=== PATIENT | male | born 1990 | race Caucasian/White ===

== ENCOUNTER 2016-10-18 18:07 | Inpatient (IN) | payer OTHER ==
[2016-10-18 18:47] VITALS: BMI 26.4
--- NOTE | 2016-10-18 19:05 | HP ---
COWS - Scale Resting Pulse: 2= [place] 101-120 Sweatin=Flushed/Facial Moisture Restless Observation: 3= Extraneous Movement Pupil Size: 2= Moderately Dilated Bone or Joint Aches: 2= Severe Diffuse Aches Runny Nose/ Eye Tearin= Runny Nose/Eyes GI Upset > 30mins: 2= Nausea/Diarrhea Tremor Observation: 2= Slight Tremor Visible Yawning Observation: 1= 1-2x During Session Anxiety or Irritability: 2=Irritable/Anxious Goose Flesh Skin: 0=Smooth Skin COWS Score: 20 CIWA Score - CIWA Score Nausea/Vomitin Muscle Tremors: 4-Moderate,w/Arms Extend Anxiety: 5 Agitation: 5 Paroxysmal Sweats: 4-Forehead w/Sweat Beads Orientation: 0-Oriented Tacttile Disturbances: 1-Very Mild Itch/Numbness Auditory Disturbances: 0-None Visual Disturbances: 0-None Headache: 2-Mild CIWA-Ar Total Score: 24 Admission ROS [facility] - HPI Chief Complaint: Withdrawal sx. Allergies/Adverse Reactions: Allergies Allergy/AdvReac Type Severity Reaction Status Date / Time No Known Allergies Allergy Verified 10/18/16 18:59 History of Present Illness: 26 y/o man with a long hx. of drug dependence is admitted for detox. Pt. denies previous detox.Pt. is restless,sweating constantly talking. Exam Limitations: No Limitations - Ebola screening Have you traveled outside of the country in the last 21 days: No Have you had contact with anyone from an Ebola affected area: No Have you been sick,other than usual withdrawal symptoms: No Do you have a fever: No - Review of Systems Constitutional: Diaphoresis EENT: reports: Nose Congestion Respiratory: reports: No Symptoms reported Cardiac: reports: No Symptoms Reported GI: reports: Nausea : reports: No Symptoms Reported Musculoskeletal: reports: Back Pain, Joint Pain, Muscle Pain Integumentary: reports: Sweating Neuro: reports: Headache, Numbness, Tingling, Tremors Endocrine: reports: No Symptoms Reported Hematology: reports: No Symptoms Reported Psychiatric: reports: No Sypmtoms Reported Other Systems: Reviewed and Negative Patient History - Patient Medical History Hx Anemia: No Hx Asthma: Yes (as a child) Hx Chronic Obstructive Pulmonary Disease (COPD): No Hx Cancer: No Hx Cardiac Disorders: No Hx Congestive Heart Failure: No Hx Hypertension: No Hx Hypercholesterolemia: No Hx Pacemaker: No HX Cerebrovascular Accident: No Hx Seizures: No Hx Dementia: No Hx Diabetes: No Hx Gastrointestinal Disorders: No Hx Liver Disease: No Hx Genitourinary Disorders: No Hx Sexually Transmitted Disorders: No Hx Renal Disease (ESRD): No Hx Thyroid Disease: No Hx Human Immunodeficiency Virus (HIV): No Hx Hepatitis C: No Hx Depression: Yes (prozac) Hx Suicide Attempt: No Hx Bipolar Disorder: No Hx Schizophrenia: No Other Medical History: ADHD - Patient Surgical History Past Surgical History: No - PPD History Previous Implant?: Yes Documented Results: Negative w/o proof Implanted On Prior [facility] Admission?: No PPD to be Administered?: Yes - Smoking Cessation Smoking history: Current every day smoker Aproximately how many cigarettes per day: 25 Hx Chewing Tobacco Use: No Initiated information on smoking cessation: Yes 'Breaking Loose' booklet given: 10/18/16 - Substance & Tx. History Hx Alcohol Use: No Hx Substance Use: Yes Substance Use Type: Cocaine, Heroin, Marijuana, Tranquilizers Hx Substance Use Treatment: No - Substances Abused Alprazolam (Xanax) Route: Oral Frequency: 3-6 times per week Amount used: 1-2 mg Age of first use: 21 (tried valium at 13 y/o) Date of Last Use: 10/18/16 Heroin Route: Inhalation Frequency: Daily Amount used: 2-3 gm Age of first use: 25 (from 13 to 15 y/o hydrocone) Date of Last Use: 10/17/16 Family Disease History - Family Disease History Family Disease History: Diabetes: Grandparent, Other: Father (Heroin,Bipolar disorder) Admission Physical Exam [facility] - Vital Signs Vital Signs: Vital Signs - 24 hr 10/18/16 18:44 Temperature 96.3 F L Pulse Rate 102 H Respiratory 20 Rate Blood Pressure 127/80 - Physical General Appearance: Yes: Irritable, Sweating, Anxious HEENTM: Yes: Nasal Congestion, Rhinorrhea Respiratory: Yes: Chest Non-Tender, Lungs Clear, Normal Breath Sounds Neck: Yes: Supple Breast: Yes: Breast Exam Deferred Cardiology: Yes: Regular Rhythm, Regular Rate, S1, S2 Abdominal: Yes: Normal Bowel Sounds, Non Tender, Soft Genitourinary: Yes: Within Normal Limits Back: Yes: Within Normal Limits Extremities: Yes: Tremors Neurological: Yes: Fully Oriented, Alert Integumentary: Yes: Within Normal Limits Lymphatic: Yes: Within Normal Limits - Diagnostic (1) Cannabis dependence, uncomplicated Current Visit: Yes Status: Acute (2) Cocaine dependence, uncomplicated Current Visit: Yes Status: Acute (3) Opioid dependence with withdrawal Current Visit: Yes Status: Acute (4) Sedative, hypnotic or anxiolytic dependence with withdrawal, uncomplicated Current Visit: Yes Status: Acute Cleared for Admission [facility] - Detox or Rehab [facility] Level of Care: Medically Managed Detox Regimen/Protocol: Methadone [facility] Breath Alcohol Content Breath Alcohol Content: 0 Urine Drug Screen - Results Drug Screen Negative: No Urine Drug Screen Results: THC-Marijuana, DAREK-Cocaine, OPI-Opiates, BZO- Benzodiazepines
[2016-10-18] MEDS ORDERED: MAGNESIUM HYDROX 2400MG/30ML ORAL SUSPENSION 30 ML CUP PO PRN (19:16)
[2016-10-18] MEDS ORDERED: P-EPHED 60MG/TRIPROLIDI 2.5MG TABLET PO PRN (19:16)
[2016-10-18] MEDS ORDERED: LOPERAMIDE HCL 2 MG CAPSULE PO PRN (19:16)
[2016-10-18] MEDS ORDERED: diphenhydrAMINE HCL 50 MG CAPSULE PO PRN (19:16)
[2016-10-18] MEDS ORDERED: guaiFENesin/D-METHORPHAN HB 10 ML UNIT-DOSE CUPS PO PRN (19:16)
[2016-10-18] MEDS ORDERED: MAG HYDROX/AL HYDROX/SIMETH 30 ML UNIT-DOSE CUP PO PRN (19:16)
[2016-10-18] MEDS ORDERED: MENTHOL/PHENOL 1 EACH UD MM PRN (19:16)
[2016-10-18] MEDS ORDERED: MAGNESIUM CITRATE 300 ML BOTTLE PO PRN (19:16)
[2016-10-18] MEDS ORDERED: diazePAM 5 MG TABLET PO ONE (19:16)
[2016-10-18] MEDS ORDERED: METHADONE HCL 10 MG TABLET (FOR DETOX USE ONLY) PO ONE ×2 (19:16→23:00)
[2016-10-18] MEDS ORDERED: ALBUTEROL SO4 6.7 GM HFA INHALER IH PRN (19:24)
[2016-10-18] MEDS: NICOTINE 21 MG/24 HOURS TOPICAL PATCH TD SCH (20:54)
[2016-10-18] MEDS: diazePAM 5 MG TABLET PO SCH (22:16)
[2016-10-18] MEDS: THIAMINE HCL 100 MG TABLET (FP) PO SCH (22:16)
[2016-10-19] MEDS: hydrOXYzine PAMOATE 50 MG CAPSULE (FP) PO PRN ×2 (00:24→22:42)
[2016-10-19] MEDS: IBUPROFEN 400 MG TABLET (FP) PO PRN (01:15)
[2016-10-19] MEDS: diazePAM 5 MG TABLET PO PRN (01:16)
[2016-10-19] MEDS: diazePAM 5 MG TABLET PO SCH ×3 (05:59→22:41)
[2016-10-19] MEDS ORDERED: METHADONE HCL 10 MG TABLET (FOR DETOX USE ONLY) PO SCH (10:00)
[2016-10-19 10:12] LABS: MCH 31.1 pg (25.7-33.7); MCHC 33.8 g/dl (32.0-35.9); MEAN CELL VOLUME 91.8 fl (80-96); MEAN PLT VOLUME 8.3 fl (7.5-11.1); PLATELET COUNT 197 K/MM3 (134-434); RDW 13.4 % (11.9-15.9)
[2016-10-19] MEDS: PRENATAL VITAMINS W/ FOLIC ACID TABLET (FP) PO SCH (10:22)
[2016-10-19] MEDS: NICOTINE 21 MG/24 HOURS TOPICAL PATCH TD SCH (10:22)
[2016-10-19 10:28] LABS: ALBUMIN 3.9 g/dl (3.4-5.0); ANION GAP 8 (8-16); CALCIUM 9.4 mg/dL (8.5-10.1); CO2 30 mmol/L (21-32); GLUCOSE,RANDOM 93 mg/dL (74-106); SGOT/AST 45 U/L (15-37); SGPT/ALT 33 U/L (12-78)
[2016-10-19 10:30] LABS: ALK PHOS 87 U/L (45-117); BILIRUBIN,TOTAL 0.7 mg/dL (0.2-1.0); TOT PROT 7.1 g/dl (6.4-8.2)
[2016-10-19 10:54] LABS: HIV 1 & 2 AB NEGATIVE; HIV 1 AGp24 NEGATIVE
--- NOTE | 2016-10-19 11:16 | CONSULT ---
[facility] Psychiatric Consult - Data Date of interview: 10/19/16 Admission source: [facility] Identifying data: This isn 26 years old male with no psychiartric hospitalization history, intoxicated with: Heroin, Xanax, Nicoptins, history of Cocaine and Cannabis abuse Substance Abuse History: - Smoking Cessation. Smoking history: Current every day smoker. Aproximately how many cigarettes per day: 25. Hx Chewing Tobacco Use: No. Initiated information on smoking cessation: Yes. 'Breaking Loose' booklet given: 10/18/16. - Substance & Tx. History. Hx Alcohol Use: No. Hx Substance Use: Yes. Substance Use Type: Cocaine, Heroin, Marijuana, Tranquilizers. Hx Substance Use Treatment: No. - Substances Abused. Alprazolam (Xanax). Route: Oral. Frequency: 3-6 times per week. Amount used: 1-2 mg. Age of first use: 21 (tried valium at 13 y/o). Date of Last Use: 10/18. Heroin. Route: Inhalation. Frequency: Daily. Amount used: 2-3 gm. Age of first use: 25 (from 13 to 15 y/o hydrocone). Date of Last Use: 10/17/16 Medical History: Denies Psychiatric History: Denies Physical/Sexual Abuse/Trauma History: Denies Additional Comment: Observation. Detox Unit Care Protocol Mental Status Exam - Mental Status Exam Alert and Oriented to: Person Cognitive Function: Fair Patient Appearance: Unkempt Mood: Sad Affect: Flat Patient Behavior: Sedated Speech Pattern: Delayed Voice Loudness: Mildly Soft/Quiet Thought Process: Circumstantial Thought Disorder: Being Controlled Hallucinations: Denies Suicidal Ideation: Denies Homicidal Ideation: Denies Insight/Judgement: Fair Sleep: Difficulty falling asleep Appetite: Weight loss Muscle strength/Tone: Mild Hypotonicity Gait/Station: Shuffling Additional Comments: Observation. Detox Unit Care Protocol Psychiatric Findings - Problem List ([place] 1, 2,3) (1) Cannabis dependence, uncomplicated Current Visit: Yes Status: Acute (2) Cocaine dependence, uncomplicated Current Visit: Yes Status: Acute (3) Opioid dependence with withdrawal Current Visit: Yes Status: Acute (4) Sedative, hypnotic or anxiolytic dependence with withdrawal, uncomplicated Current Visit: Yes Status: Acute (5) Drug-induced mood disorder Current Visit: Yes Status: Suspected - Initial Treatment Plan Initial Treatment Plan: Observation. Detox Unit Care Protocol
--- NOTE | 2016-10-19 14:23 | EKG ---
Test Reason : Blood Pressure : / mmHG Vent. Rate : 072 BPM Atrial Rate : 072 BPM P-R Int : 142 ms QRS Dur : 086 ms QT Int : 376 ms P-R-T Axes : 057 059 043 degrees QTc Int : 411 ms NORMAL SINUS RHYTHM NORMAL ECG NO PREVIOUS ECGS AVAILABLE Confirmed by SUE BARAJAS MD ([id number]) on 10/19/2016 2:23:02 PM Referred By: Derrek Olivier Confirmed By:SUE BARAJAS MD
--- NOTE | 2016-10-19 15:13 | PN ---
[facility] CIWA - CIWA Score Nausea/Vomitin-Mild Nausea/No Vomiting Muscle Tremors: 4-Moderate,w/Arms Extend Anxiety: 4-Mod. Anxious/Guarded Agitation: 4-Moderately Restless Paroxysmal Sweats: 3 Orientation: 0-Oriented Tacttile Disturbances: 0-None Auditory Disturbances: 0-None Visual Disturbances: 0-None Headache: 0-None Present CIWA-Ar Total Score: 16 [facility] COWS - Scale Resting Pulse: 1= [place] 81-100 Sweatin=Flushed/Facial Moisture Restless Observation: 1= Difficult to Sit Still Pupil Size: 0= Normal to Room Light Bone or Joint Aches: 1= Mild Discomfort Runny Nose/ Eye Tearin= Runny Nose/Eyes GI Upset > 30mins: 2= Nausea/Diarrhea Tremor Observation of Outstretched Hands: 2= Slight Tremor Visible Yawning Observation: 1= 1-2x During Session Anxiety or Irritability: 2=Irritable/Anxious Goose Flesh Skin: 0=Smooth Skin COWS Score: 14 S Progress Note (SOAP) Subjective: Anxiety,tremors,sweating,interrupted sleep,restless,nausea. Objective: 10/19/16 15:12 Vital Signs - 8 hr 10/19/16 10/19/16 09:57 13:57 Temperature 96.6 F L 97.4 F L Pulse Rate 92 H 83 Respiratory 18 18 Rate Blood Pressure 131/84 129/77 Laboratory Tests 10/19/16 10/19/16 10/19/16 07:00 07:00 07:00 WBC 7.0 RBC 4.76 Hgb 14.8 Hct 43.7 MCV 91.8 MCHC 33.8 RDW 13.4 Plt Count 197 MPV 8.3 Sodium 141 Potassium 3.7 Chloride 103 Carbon Dioxide 30 Anion Gap 8 BUN 6 L Creatinine 1.0 Creat Clearance w eGFR > 60 Random Glucose 93 Calcium 9.4 Total Bilirubin 0.7 AST 45 H ALT 33 Alkaline Phosphatase 87 Total Protein 7.1 Albumin 3.9 RPR Titer Nonreactive HIV 1&2 Antibody Screen HIV P24 Antigen 10/19/16 07:00 WBC RBC Hgb Hct MCV MCHC RDW Plt Count MPV Sodium Potassium Chloride Carbon Dioxide Anion Gap BUN Creatinine Creat Clearance w eGFR Random Glucose Calcium Total Bilirubin AST ALT Alkaline Phosphatase Total Protein Albumin RPR Titer HIV 1&2 Antibody Screen Negative HIV P24 Antigen Negative labs noted Assessment: 10/19/16 15:12 Withdrawal sx. Plan: Continue detox
[2016-10-19 17:48] LABS: URINE APPEARANCE CLEAR; URINE BILIRUBIN NEGATIVE (NEGATIVE); URINE BLOOD NEGATIVE (NEGATIVE); URINE COLOR DKYELLOW; URINE GLUCOSE (UA) NEGATIVE (NEGATIVE); URINE KETONE NEGATIVE (NEGATIVE); URINE LEUK ESTERASE NEGATIVE (NEGATIVE); URINE NITRITE NEGATIVE (NEGATIVE); URINE PROTEIN NEGATIVE (NEGATIVE); URINE UROBILINOGEN NEGATIVE E.U./dl (0.2-1.0)
[2016-10-19] MEDS: THIAMINE HCL 100 MG TABLET (FP) PO SCH (22:41)
[2016-10-19] MEDS: CYCLOBENZAPRINE HCL 10 MG TABLET (FP) PO PRN (22:43)
[2016-10-20] MEDS: PRENATAL VITAMINS W/ FOLIC ACID TABLET (FP) PO SCH (10:34)
[2016-10-20] MEDS: diazePAM 5 MG TABLET PO SCH ×2 (10:34→22:17)
[2016-10-20] MEDS: METHADONE HCL 5 MG TABLET (FOR DETOX USE ONLY) PO SCH (10:34)
[2016-10-20] MEDS: NICOTINE 21 MG/24 HOURS TOPICAL PATCH TD SCH (10:34)
--- NOTE | 2016-10-20 11:47 | PN ---
[facility] CIWA - CIWA Score Nausea/Vomitin-No Nausea/No Vomiting Muscle Tremors: 4-Moderate,w/Arms Extend Anxiety: 4-Mod. Anxious/Guarded Agitation: 4-Moderately Restless Paroxysmal Sweats: 1-Minimal Palms Moist Orientation: 0-Oriented Tacttile Disturbances: 3-Moderate Itch/Numb/Burn Auditory Disturbances: 0-None Visual Disturbances: 0-None Headache: 0-None Present CIWA-Ar Total Score: 16 S COWS - Scale Resting Pulse: 1= [place] 81-100 Sweatin= Chills/Flushing Restless Observation: 3= Extraneous Movement Pupil Size: 2= Moderately Dilated Bone or Joint Aches: 4=Acute Joint/Muscle Pain Runny Nose/ Eye Tearin= Nasal Congestion GI Upset > 30mins: 0= None Tremor Observation of Outstretched Hands: 2= Slight Tremor Visible Yawning Observation: 2= >3x During Session Anxiety or Irritability: 2=Irritable/Anxious Goose Flesh Skin: 0=Smooth Skin COWS Score: 18 [facility] Progress Note (SOAP) Subjective: ANXIETY,HOT/COLD SWEATS. Objective: 10/20/16 11:46 Vital Signs Temperature 96.6 F L 10/20/16 09:35 Pulse Rate 91 H 10/20/16 09:35 Respiratory Rate 20 10/20/16 09:35 Blood Pressure 115/82 10/20/16 09:35 O2 Sat by Pulse Oximetry (%) Laboratory Last Values WBC 7.0 K/mm3 (4.0-10.0) 10/19/16 07:00 RBC 4.76 M/mm3 (4.00-5.60) 10/19/16 07:00 Hgb 14.8 GM/dL (11.7-16.9) 10/19/16 07:00 Hct 43.7 % (35.4-49) 10/19/16 07:00 MCV 91.8 fl (80-96) 10/19/16 07:00 MCHC 33.8 g/dl (32.0-35.9) 10/19/16 07:00 RDW 13.4 % (11.9-15.9) 10/19/16 07:00 Plt Count 197 K/MM3 (134-434) 10/19/16 07:00 MPV 8.3 fl (7.5-11.1) 10/19/16 07:00 Sodium 141 mmol/L (136-145) 10/19/16 07:00 Potassium 3.7 mmol/L (3.5-5.1) 10/19/16 07:00 Chloride 103 mmol/L (98-107) 10/19/16 07:00 Carbon Dioxide 30 mmol/L (21-32) 10/19/16 07:00 Anion Gap 8 (8-16) 10/19/16 07:00 BUN 6 mg/dL (7-18) L 10/19/16 07:00 Creatinine 1.0 mg/dL (0.7-1.3) 10/19/16 07:00 Creat Clearance w eGFR > 60 (>60) 10/19/16 07:00 Random Glucose 93 mg/dL (74-106) 10/19/16 07:00 Calcium 9.4 mg/dL (8.5-10.1) 10/19/16 07:00 Total Bilirubin 0.7 mg/dL (0.2-1.0) 10/19/16 07:00 AST 45 U/L (15-37) H 10/19/16 07:00 ALT 33 U/L (12-78) 10/19/16 07:00 Alkaline Phosphatase 87 U/L (45-117) 10/19/16 07:00 Total Protein 7.1 g/dl (6.4-8.2) 10/19/16 07:00 Albumin 3.9 g/dl (3.4-5.0) 10/19/16 07:00 Urine Color Dkyellow 10/19/16 13:55 Urine Appearance Clear 10/19/16 13:55 Urine pH 6.0 (5.0-8.0) 10/19/16 13:55 Ur Specific [place] 1.015 (1.005-1.025) 10/19/16 13:55 Urine Protein Negative (NEGATIVE) 10/19/16 13:55 Urine Glucose (UA) Negative (NEGATIVE) 10/19/16 13:55 Urine Ketones Negative (NEGATIVE) 10/19/16 13:55 Urine Blood Negative (NEGATIVE) 10/19/16 13:55 Urine Nitrite Negative (NEGATIVE) 10/19/16 13:55 Urine Bilirubin Negative (NEGATIVE) 10/19/16 13:55 Urine Urobilinogen Negative E.U./dl (0.2-1.0) 10/19/16 13:55 Ur Leukocyte Esterase Negative (NEGATIVE) 10/19/16 13:55 RPR Titer Nonreactive (NONREACTIVE) 10/19/16 07:00 HIV 1&2 Antibody Screen Negative 10/19/16 07:00 HIV P24 Antigen Negative 10/19/16 07:00 Assessment: 10/20/16 11:47 WITHDRAWAL SX Plan: CONTINUE DETOX
[2016-10-20] MEDS: diazePAM 5 MG TABLET PO PRN ×2 (12:53→16:59)
[2016-10-20] MEDS: NICOTINE POLACRILEX 4 MG GUM BC PRN ×3 (15:30→22:18)
[2016-10-20] MEDS: ACETAMINOPHEN 325 MG TABLET (FP) PO PRN (18:42)
[2016-10-20] MEDS: CYCLOBENZAPRINE HCL 10 MG TABLET (FP) PO PRN (22:17)
[2016-10-20] MEDS: THIAMINE HCL 100 MG TABLET (FP) PO SCH (22:17)
[2016-10-20] MEDS: hydrOXYzine PAMOATE 50 MG CAPSULE (FP) PO PRN (22:18)
[2016-10-21] MEDS: diazePAM 5 MG TABLET PO PRN ×2 (06:04→15:14)
[2016-10-21] MEDS: CYCLOBENZAPRINE HCL 10 MG TABLET (FP) PO PRN ×2 (06:04→15:14)
--- NOTE | 2016-10-21 10:12 | PN ---
[facility] Progress Note (SOAP) Subjective: DECREASED ANXIETY,SWEATS,IRRITABILITY,ACHES. Objective: 10/21/16 10:11 Last Vital Signs Temp Pulse Resp BP Pulse Ox 97.0 F L 84 20 120/72 10/21/16 09:35 10/21/16 09:35 10/21/16 09:35 10/21/16 09:35 Assessment: 10/21/16 10:11 WITHDRAWAL SX Plan: CONTINUE DETOX
[2016-10-21] MEDS: PRENATAL VITAMINS W/ FOLIC ACID TABLET (FP) PO SCH (10:15)
[2016-10-21] MEDS: METHADONE HCL 5 MG TABLET (FOR DETOX USE ONLY) PO SCH (10:15)
[2016-10-21] MEDS: diazePAM 5 MG TABLET PO SCH (10:15)
[2016-10-21] MEDS: NICOTINE 21 MG/24 HOURS TOPICAL PATCH TD SCH (10:16)
[2016-10-21] MEDS: ACETAMINOPHEN 325 MG TABLET (FP) PO PRN (10:17)
[2016-10-21] MEDS: NICOTINE POLACRILEX 4 MG GUM BC PRN ×2 (10:17→15:07)
[2016-10-21] MEDS: IBUPROFEN 400 MG TABLET (FP) PO PRN (15:15)
[2016-10-21 17:59] VITALS: BP 106/59; PULSE 86; TEMP 97.5
--- NOTE | 2016-10-21 21:36 | DS ---
[facility] Detox Discharge Summary Admission Date: 10/18/16 Discharge Date: 10/21/16 - History Present History: Cannabis Dependence, Cocaine Dependence, Opioid Dependence, Sedative Dependence Additional Comments: patient insists to leave the unit refuses to wait face to face with the provider - Physical Exam Results Vital Signs: Vital Signs Temperature 97.5 F L 10/21/16 17:58 Pulse Rate 86 10/21/16 17:58 Respiratory Rate 16 10/21/16 17:58 Blood Pressure 106/59 10/21/16 17:58 O2 Sat by Pulse Oximetry (%) Pertinent Admission Physical Exam Findings: withdrawal sx Laboratory Last Values WBC 7.0 K/mm3 (4.0-10.0) 10/19/16 07:00 RBC 4.76 M/mm3 (4.00-5.60) 10/19/16 07:00 Hgb 14.8 GM/dL (11.7-16.9) 10/19/16 07:00 Hct 43.7 % (35.4-49) 10/19/16 07:00 MCV 91.8 fl (80-96) 10/19/16 07:00 MCHC 33.8 g/dl (32.0-35.9) 10/19/16 07:00 RDW 13.4 % (11.9-15.9) 10/19/16 07:00 Plt Count 197 K/MM3 (134-434) 10/19/16 07:00 MPV 8.3 fl (7.5-11.1) 10/19/16 07:00 Sodium 141 mmol/L (136-145) 10/19/16 07:00 Potassium 3.7 mmol/L (3.5-5.1) 10/19/16 07:00 Chloride 103 mmol/L (98-107) 10/19/16 07:00 Carbon Dioxide 30 mmol/L (21-32) 10/19/16 07:00 Anion Gap 8 (8-16) 10/19/16 07:00 BUN 6 mg/dL (7-18) L 10/19/16 07:00 Creatinine 1.0 mg/dL (0.7-1.3) 10/19/16 07:00 Creat Clearance w eGFR > 60 (>60) 10/19/16 07:00 Random Glucose 93 mg/dL (74-106) 10/19/16 07:00 Calcium 9.4 mg/dL (8.5-10.1) 10/19/16 07:00 Total Bilirubin 0.7 mg/dL (0.2-1.0) 10/19/16 07:00 AST 45 U/L (15-37) H 10/19/16 07:00 ALT 33 U/L (12-78) 10/19/16 07:00 Alkaline Phosphatase 87 U/L (45-117) 10/19/16 07:00 Total Protein 7.1 g/dl (6.4-8.2) 10/19/16 07:00 Albumin 3.9 g/dl (3.4-5.0) 10/19/16 07:00 Urine Color Dkyellow 10/19/16 13:55 Urine Appearance Clear 10/19/16 13:55 Urine pH 6.0 (5.0-8.0) 10/19/16 13:55 Ur Specific [place] 1.015 (1.005-1.025) 10/19/16 13:55 Urine Protein Negative (NEGATIVE) 10/19/16 13:55 Urine Glucose (UA) Negative (NEGATIVE) 10/19/16 13:55 Urine Ketones Negative (NEGATIVE) 10/19/16 13:55 Urine Blood Negative (NEGATIVE) 10/19/16 13:55 Urine Nitrite Negative (NEGATIVE) 10/19/16 13:55 Urine Bilirubin Negative (NEGATIVE) 10/19/16 13:55 Urine Urobilinogen Negative E.U./dl (0.2-1.0) 10/19/16 13:55 Ur Leukocyte Esterase Negative (NEGATIVE) 10/19/16 13:55 RPR Titer Nonreactive (NONREACTIVE) 10/19/16 07:00 HIV 1&2 Antibody Screen Negative 10/19/16 07:00 HIV P24 Antigen Negative 10/19/16 07:00 lab noted - Treatment Hospital Course: Detox Protocol Followed, Responded well - Medication Discharge Medications: Ambulatory Orders NK [No Known Home Medication] 10/18/16 - Diagnosis (1) Cannabis dependence, uncomplicated Status: Chronic (2) Cocaine dependence, uncomplicated Status: Chronic (3) Opioid dependence with withdrawal Status: Acute (4) Sedative, hypnotic or anxiolytic dependence with withdrawal, uncomplicated Status: Acute - AMA Did Patient Leave Against Medical Advice: Yes
[2016-10-22] MEDS ORDERED: diazePAM 5 MG TABLET PO SCH (10:00)
[2016-10-22] MEDS ORDERED: METHADONE HCL 10 MG TABLET (FOR DETOX USE ONLY) PO SCH (10:00)
[2016-10-23] MEDS ORDERED: METHADONE HCL 5 MG TABLET (FOR DETOX USE ONLY) PO SCH (06:00)
== END 2016-10-21 18:25 | disposition left against medical advice (07) | DRG 770 ==
LOC: YASAS 18:07 → Y3N 19:17
PROVIDERS: ADMIT Internal Medicine; ATTEND Internal Medicine
PROC: HZ2ZZZZ Detoxification Services for Substance Abuse Treatment (ICD-10-PCS; principal; 2016-10-18)
DX: F11.23 Opioid dependence with withdrawal (principal); F13.230 Sedative, hypnotic or anxiolytic dependence with withdrawal, uncomplicated; F14.20 Cocaine dependence, uncomplicated; F12.20 Cannabis dependence, uncomplicated; F17.210 Nicotine dependence, cigarettes, uncomplicated; F19.24 Other psychoactive substance dependence with psychoactive substance-induced mood disorder; Z87.09 Personal history of other diseases of the respiratory system
CPT/HCPCS: 36415; 80053; 81003; 85027; 86593; 87389; 93005; 93010

== ENCOUNTER 2016-12-30 20:43 | Inpatient (IN) | payer OTHER ==
[2016-12-30 21:38] VITALS: BMI 25.9
--- NOTE | 2016-12-30 22:03 | HP ---
COWS - Scale Resting Pulse: 0= [place] 80 or Below Sweatin= Chills/Flushing Restless Observation: 1= Difficult to Sit Still Pupil Size: 0= Normal to Room Light Bone or Joint Aches: 2= Severe Diffuse Aches Runny Nose/ Eye Tearin= Runny Nose/Eyes GI Upset > 30mins: 2= Nausea/Diarrhea Tremor Observation: 2= Slight Tremor Visible Yawning Observation: 0= None Anxiety or Irritability: 2=Irritable/Anxious Goose Flesh Skin: 3=[place] COWS Score: 15 CIWA Score - CIWA Score Nausea/Vomitin-Mild Nausea/No Vomiting Muscle Tremors: 3 Anxiety: 4-Mod. Anxious/Guarded Agitation: 4-Moderately Restless Paroxysmal Sweats: 1-Minimal Palms Moist Orientation: 0-Oriented Tacttile Disturbances: 0-None Auditory Disturbances: 0-None Visual Disturbances: 0-None Headache: 1-Very Mild CIWA-Ar Total Score: 14 Admission ROS [facility] - HPI Chief Complaint: WITHDRAWAL SX Allergies/Adverse Reactions: Allergies Allergy/AdvReac Type Severity Reaction Status Date / Time No Known Allergies Allergy Verified 12/30/16 22:15 History of Present Illness: 26 YEARS OLD MALE WITH LONG HISTORY OF ALCOHOL XANAX OPIATE NICOTINE DEPENDENCE DENIES MEDICAL ISSUE HAS DEPRESSION IS ADMITTED TO DETOX Exam Limitations: No Limitations - Ebola screening Have you traveled outside of the country in the last 21 days: No (N) Have you had contact with anyone from an Ebola affected area: No Have you been sick,other than usual withdrawal symptoms: No Do you have a fever: No - Review of Systems Constitutional: Changes in sleep, Weight Stable EENT: reports: Dental Problems (MULTIPLE CAVITIES) Respiratory: reports: No Symptoms reported Cardiac: reports: No Symptoms Reported GI: reports: Nausea, Poor Fluid Intake, Abdominal cramping : reports: No Symptoms Reported Musculoskeletal: reports: Back Pain, Joint Pain, Muscle Pain, Neck Pain Integumentary: reports: Rash (BOTH INNER UPPER LEGS) Neuro: reports: Tremors Endocrine: reports: No Symptoms Reported Hematology: reports: No Symptoms Reported Psychiatric: reports: Judgement Intact, Orientated x3, Anxious, Depressed Other Systems: Reviewed and Negative Patient History - Patient Medical History Hx Anemia: No Hx Asthma: Yes (Child will asthma) Hx Chronic Obstructive Pulmonary Disease (COPD): No Hx Cancer: No Hx Cardiac Disorders: No Hx Congestive Heart Failure: No Hx Hypertension: No Hx Hypercholesterolemia: No Hx Pacemaker: No HX Cerebrovascular Accident: No Hx Seizures: No Hx Dementia: No Hx Diabetes: No Hx Gastrointestinal Disorders: No Hx Liver Disease: No Hx Genitourinary Disorders: No Hx Sexually Transmitted Disorders: No Hx Renal Disease (ESRD): No Hx Thyroid Disease: No Hx Human Immunodeficiency Virus (HIV): No Hx Hepatitis C: No Hx Depression: Yes Hx Suicide Attempt: No Hx Bipolar Disorder: No Hx Schizophrenia: No - Patient Surgical History Past Surgical History: No - PPD History Previous Implant?: Yes Documented Results: Negative w/proof Implanted On Prior [facility] Admission?: Yes Date: 10/20/16 PPD to be Administered?: No - Smoking Cessation Smoking history: Current every day smoker Aproximately how many cigarettes per day: 25 Hx Chewing Tobacco Use: No Initiated information on smoking cessation: Yes 'Breaking Loose' booklet given: 12/30/16 - Substance & Tx. History Hx Alcohol Use: Yes Hx Substance Use: Yes Substance Use Type: Alcohol, Cocaine, Opiates, Tranquilizers Hx Substance Use Treatment: Yes (10/2016 [facility] - Substances Abused Alcohol Route: Oral Frequency: 1-3 times last 30 days Amount used: 12 OZ BEER X 1 Age of first use: 11 Date of Last Use: 12/30/16 Heroin Route: Inhalation Frequency: Daily Amount used: 2 G Age of first use: 25 Date of Last Use: 12/30/16 Cocaine Route: Smoking Frequency: 1-3 times last 30 days Amount used: 1 PUFF Age of first use: 13 Date of Last Use: 12/30/16 Marijuana/Hashish Route: Smoking Frequency: Daily Amount used: 3 G Age of first use: 13 Date of Last Use: 12/29/16 Alprazolam (Xanax) Route: Oral Frequency: 3-6 times per week Amount used: 4 MG Age of first use: 25 Date of Last Use: 12/30/16 Family Disease History - Family Disease History Family Disease History: Diabetes: Grandparent, Other: Father (Heroin,Bipolar disorder ) Admission Physical Exam [facility] - Vital Signs Vital Signs: Vital Signs - 24 hr 12/30/16 21:29 Temperature 97.4 F L Pulse Rate 76 Respiratory 18 Rate Blood Pressure 131/73 - Physical General Appearance: Yes: Appropriately Dressed, Mild Distress, Alcohol on Breath , Tremorous, Irritable, Sweating, Anxious HEENTM: Yes: Hearing grossly Normal, Normal ENT Inspection, Normocephalic, Normal Voice Respiratory: Yes: Chest Non-Tender, Lungs Clear, Normal Breath Sounds, No Respiratory Distress, No Accessory Muscle Use Neck: Yes: Supple, Trachea in good position Breast: Yes: Breasts Symetrical Cardiology: Yes: Regular Rhythm, Regular Rate, S1, S2 Abdominal: Yes: Non Tender, Soft, Increased Bowel Sounds Genitourinary: Yes: Within Normal Limits Back: Yes: Normal Inspection Musculoskeletal: Yes: full range of Motion, Gait Steady, Back pain, Muscle Pain Extremities: Yes: Normal Range of Motion, Non-Tender, Tremors Neurological: Yes: Fully Oriented, Alert, Motor Strength 5/5, Normal Response, Depressed Affect Integumentary: Yes: Warm Lymphatic: Yes: Within Normal Limits - Diagnostic (1) Opioid dependence with withdrawal Current Visit: Yes Status: Acute (2) Atypical rash Current Visit: Yes Status: Chronic (3) Nicotine dependence Current Visit: Yes Status: Acute Qualifiers: Nicotine product type: cigarettes Substance use status: in withdrawal Qualified Code(s): F17.213 - Nicotine dependence, cigarettes, with withdrawal (4) Depression (emotion) Current Visit: Yes Status: Suspected Qualifiers: Depression Type: dysthymia Qualified Code(s): F34.1 - Dysthymic disorder Cleared for Admission [facility] - Detox or Rehab [facility] Level of Care: Medically Managed Detox Regimen/Protocol: Methadone [facility] Breath Alcohol Content Breath Alcohol Content: 0.020 Urine Drug Screen - Results Drug Screen Negative: No Urine Drug Screen Results: THC-Marijuana, DAREK-Cocaine, OPI-Opiates, BZO- Benzodiazepines, OXY-Oxycodone
[2016-12-30] MEDS ORDERED: MAGNESIUM HYDROX 2400MG/30ML ORAL SUSPENSION 30 ML CUP PO PRN (22:10)
[2016-12-30] MEDS ORDERED: ACETAMINOPHEN 325 MG TABLET (FP) PO PRN (22:10)
[2016-12-30] MEDS ORDERED: LOPERAMIDE HCL 2 MG CAPSULE PO PRN (22:10)
[2016-12-30] MEDS ORDERED: MENTHOL/PHENOL 1 EACH UD MM PRN (22:10)
[2016-12-30] MEDS ORDERED: METHADONE HCL 10 MG TABLET (FOR DETOX USE ONLY) PO ONE ×2 (22:10→23:00)
[2016-12-30] MEDS ORDERED: MAG HYDROX/AL HYDROX/SIMETH 30 ML UNIT-DOSE CUP PO PRN (22:10)
[2016-12-30] MEDS ORDERED: NICOTINE 21 MG/24 HOURS TOPICAL PATCH TD PRN (22:10)
[2016-12-30] MEDS ORDERED: guaiFENesin/D-METHORPHAN HB 10 ML UNIT-DOSE CUPS PO PRN (22:10)
[2016-12-30] MEDS ORDERED: IBUPROFEN 400 MG TABLET (FP) PO PRN (22:10)
[2016-12-30] MEDS ORDERED: MAGNESIUM CITRATE 300 ML BOTTLE PO PRN (22:10)
[2016-12-30] MEDS ORDERED: P-EPHED 60MG/TRIPROLIDI 2.5MG TABLET PO PRN (22:10)
[2016-12-30] MEDS: diazePAM 5 MG TABLET PO PRN (23:15)
[2016-12-30] MEDS: NICOTINE POLACRILEX 4 MG GUM BUC PRN (23:16)
[2016-12-30] MEDS: diphenhydrAMINE HCL 50 MG CAPSULE PO PRN (23:17)
[2016-12-31] MEDS: diazePAM 5 MG TABLET PO PRN ×2 (05:39→16:46)
[2016-12-31] MEDS: NICOTINE POLACRILEX 4 MG GUM BUC PRN ×4 (06:08→19:01)
--- NOTE | 2016-12-31 09:39 | CONSULT ---
[facility] Psychiatric Consult - Data Date of interview: 12/31/16 Admission source: [facility] Identifying data: This is 26 years old male with no psychiatric hospitalization history intoxciated with: Opioids, Cannabis, Xanax, Cocaine and Nicotine Substance Abuse History: - Smoking Cessation. Smoking history: Current every day smoker. Aproximately how many cigarettes per day: 25. Hx Chewing Tobacco Use: No. Initiated information on smoking cessation: Yes. 'Breaking Loose' booklet given: 12/30/16. - Substance & Tx. History. Hx Alcohol Use: Yes. Hx Substance Use: Yes. Substance Use Type: Alcohol, Cocaine, Opiates, Tranquilizers. Hx Substance Use Treatment: Yes (10/2016 [facility]). - Substances Abused. Alcohol. Route: Oral. Frequency: 1-3 times last 30 days. Amount used: 12 OZ BEER X 1. Age of first use: 11. Date of Last Use: . Heroin. Route: Inhalation. Frequency: Daily. Amount used: 2 G. Age of first use: 25. Date of Last Use: 12/30/16. Cocaine. Route: Smoking. Frequency: 1-3 times last 30 days. Amount used: 1 PUFF. Age of first use: 13. Date of Last Use: 12/30/16. Marijuana/Hashish. Route: Smoking. Frequency: Daily. Amount used: 3 G. Age of first use: 13. Date of Last Use: 12/29/16. Alprazolam (Xanax). Route: Oral. Frequency: 3-6 times per week. Amount used: 4 MG. Age of first use: 25. Date of Last Use: 12/30/16 Medical History: Denies Psychiatric History: Denies Physical/Sexual Abuse/Trauma History: Denies Additional Comment: Observation. Detox Unit Care Protocol Mental Status Exam - Mental Status Exam Alert and Oriented to: Person Patient Appearance: Unkempt Mood: Sad Affect: Flat Patient Behavior: Sedated Speech Pattern: Delayed Voice Loudness: Normal Thought Process: Circumstantial Thought Disorder: Being Controlled Hallucinations: Denies Suicidal Ideation: Denies Homicidal Ideation: Denies Insight/Judgement: Fair Sleep: Difficulty falling asleep Appetite: Weight loss Muscle strength/Tone: Normal Gait/Station: Normal Additional Comments: Observation. Detox Unit Care Protocol Psychiatric Findings - Problem List ([place] 1, 2,3) (1) Cannabis dependence, uncomplicated Status: Chronic (2) Cocaine dependence, uncomplicated Status: Chronic (3) Nicotine dependence Status: Chronic Qualifiers: Nicotine product type: cigarettes Substance use status: in withdrawal Qualified Code(s): F17.213 - Nicotine dependence, cigarettes, with withdrawal (4) Sedative, hypnotic or anxiolytic dependence with withdrawal, uncomplicated Status: Chronic (5) Drug-induced mood disorder Status: Suspected - Initial Treatment Plan Initial Treatment Plan: Observation. Detox Unit Care Protocol
[2016-12-31 09:45] LABS: MCH 31.9 pg (25.7-33.7); MCHC 33.6 g/dl (32.0-35.9); MEAN PLT VOLUME 8.1 fl (7.5-11.1); PLATELET COUNT 201 K/MM3 (134-434); RDW 13.6 % (11.9-15.9)
[2016-12-31] MEDS ORDERED: METHADONE HCL 10 MG TABLET (FOR DETOX USE ONLY) PO ONE (10:00)
[2016-12-31] MEDS: PRENATAL VITAMINS W/ FOLIC ACID TABLET (FP) PO SCH (10:16)
[2016-12-31] MEDS: HYDROCORTISONE 1% TOPICAL CREAM 30 GM TUBE TP SCH ×4 (10:17→22:54)
[2016-12-31 10:20] LABS: ALBUMIN 4.1 g/dl (3.4-5.0); ALK PHOS 100 U/L (45-117); ANION GAP 7 (8-16); BILIRUBIN,TOTAL 0.3 mg/dL (0.2-1.0); CALCIUM 9.8 mg/dL (8.5-10.1); CO2 33 mmol/L (21-32); CREATININE 1.1 mg/dL (0.7-1.3); GLUCOSE,RANDOM 61 mg/dL (74-106); SGOT/AST 23 U/L (15-37); SGPT/ALT 21 U/L (12-78); TOT PROT 7.1 g/dl (6.4-8.2)
--- NOTE | 2016-12-31 10:26 | PN ---
[facility] CIWA - CIWA Score Nausea/Vomitin-No Nausea/No Vomiting Muscle Tremors: 4-Moderate,w/Arms Extend Anxiety: 4-Mod. Anxious/Guarded Agitation: 4-Moderately Restless Paroxysmal Sweats: 1-Minimal Palms Moist Orientation: 0-Oriented Tacttile Disturbances: 3-Moderate Itch/Numb/Burn Auditory Disturbances: 0-None Visual Disturbances: 0-None Headache: 0-None Present CIWA-Ar Total Score: 16 BHS COWS - Scale Resting Pulse: 0= [place] 80 or Below Sweatin= Chills/Flushing Restless Observation: 3= Extraneous Movement Pupil Size: 2= Moderately Dilated Bone or Joint Aches: 4=Acute Joint/Muscle Pain Runny Nose/ Eye Tearin= Nasal Congestion GI Upset > 30mins: 0= None Tremor Observation of Outstretched Hands: 1= Tremor [place], Not Seen Yawning Observation: 1= 1-2x During Session Anxiety or Irritability: 2=Irritable/Anxious Goose Flesh Skin: 0=Smooth Skin COWS Score: 15 S Progress Note (SOAP) Subjective: ANXIETY,IRRITABILITY,AGITATED,FATIGUE. Objective: 12/31/16 10:25 Vital Signs Temperature 96.4 F L 12/31/16 09:09 Pulse Rate 72 12/31/16 09:09 Respiratory Rate 18 12/31/16 09:09 Blood Pressure 111/65 12/31/16 09:09 O2 Sat by Pulse Oximetry (%) Laboratory Last Values WBC 7.0 K/mm3 (4.0-10.0) 12/31/16 07:00 RBC 4.74 M/mm3 (4.00-5.60) 12/31/16 07:00 Hgb 15.1 GM/dL (11.7-16.9) 12/31/16 07:00 Hct 45.0 % (35.4-49) 12/31/16 07:00 MCV 95.0 fl (80-96) 12/31/16 07:00 MCH 31.9 pg (25.7-33.7) 12/31/16 07:00 MCHC 33.6 g/dl (32.0-35.9) 12/31/16 07:00 RDW 13.6 % (11.9-15.9) 12/31/16 07:00 Plt Count 201 K/MM3 (134-434) 12/31/16 07:00 MPV 8.1 fl (7.5-11.1) 12/31/16 07:00 Sodium 141 mmol/L (136-145) 12/31/16 07:00 Potassium 3.8 mmol/L (3.5-5.1) 12/31/16 07:00 Chloride 101 mmol/L (98-107) 12/31/16 07:00 Carbon Dioxide 33 mmol/L (21-32) H 12/31/16 07:00 Anion Gap 7 (8-16) L 12/31/16 07:00 BUN 10 mg/dL (7-18) D 12/31/16 07:00 Creatinine 1.1 mg/dL (0.7-1.3) 12/31/16 07:00 Creat Clearance w eGFR > 60 (>60) 12/31/16 07:00 Random Glucose 61 mg/dL (74-106) L D 12/31/16 07:00 Calcium 9.8 mg/dL (8.5-10.1) 12/31/16 07:00 Total Bilirubin 0.3 mg/dL (0.2-1.0) D 12/31/16 07:00 AST 23 U/L (15-37) D 12/31/16 07:00 ALT 21 U/L (12-78) D 12/31/16 07:00 Alkaline Phosphatase 100 U/L (45-117) 12/31/16 07:00 Total Protein 7.1 g/dl (6.4-8.2) 12/31/16 07:00 Albumin 4.1 g/dl (3.4-5.0) 12/31/16 07:00 OTHER LAB RESULTS PENDING Assessment: 12/31/16 10:26 WITHDRAWAL SX Plan: CONTINUE DETOX
--- NOTE | 2016-12-31 11:35 | EKG ---
Test Reason : Blood Pressure : / mmHG Vent. Rate : 061 BPM Atrial Rate : 061 BPM P-R Int : 154 ms QRS Dur : 086 ms QT Int : 378 ms P-R-T Axes : 058 064 045 degrees QTc Int : 380 ms NORMAL SINUS RHYTHM POSSIBLE LEFT ATRIAL ENLARGEMENT BORDERLINE ECG WHEN COMPARED WITH ECG OF 18-OCT-2016 19:23, NO SIGNIFICANT CHANGE WAS FOUND Confirmed by JUAN HIGUERA MD ([id number]) on 12/31/2016 11:35:31 AM Referred By: Confirmed By:JUAN HIGUERA MD
[2016-12-31] MEDS: THIAMINE HCL 100 MG TABLET (FP) PO SCH (22:54)
[2017-01-01] MEDS: NICOTINE POLACRILEX 4 MG GUM BUC PRN ×4 (08:58→21:01)
[2017-01-01] MEDS ORDERED: METHADONE HCL 5 MG TABLET (FOR DETOX USE ONLY) PO ONE ×2 (10:00)
--- NOTE | 2017-01-01 10:16 | PN ---
[facility] CIWA - CIWA Score Nausea/Vomitin-No Nausea/No Vomiting Muscle Tremors: 4-Moderate,w/Arms Extend Anxiety: 4-Mod. Anxious/Guarded Agitation: 4-Moderately Restless Paroxysmal Sweats: 1-Minimal Palms Moist Orientation: 0-Oriented Tacttile Disturbances: 3-Moderate Itch/Numb/Burn Auditory Disturbances: 0-None Visual Disturbances: 0-None Headache: 0-None Present CIWA-Ar Total Score: 16 BHS COWS - Scale Resting Pulse: 0= [place] 80 or Below Sweatin= Chills/Flushing Restless Observation: 3= Extraneous Movement Pupil Size: 0= Normal to Room Light Bone or Joint Aches: 4=Acute Joint/Muscle Pain Runny Nose/ Eye Tearin= Nasal Congestion GI Upset > 30mins: 1= Stomach Cramp Tremor Observation of Outstretched Hands: 1= Tremor [place], Not Seen Yawning Observation: 1= 1-2x During Session Anxiety or Irritability: 1=Feels Anxious/Irritable Goose Flesh Skin: 0=Smooth Skin COWS Score: 13 [facility] Progress Note (SOAP) Subjective: ANXIETY,IRRITABILITY,SWEATS,FATIGUE. Objective: 01/01/17 10:20 Vital Signs Temperature 97.2 F L 01/01/17 09:45 Pulse Rate 76 01/01/17 09:45 Respiratory Rate 18 01/01/17 09:45 Blood Pressure 127/83 01/01/17 09:45 O2 Sat by Pulse Oximetry (%) Laboratory Last Values WBC 7.0 K/mm3 (4.0-10.0) 12/31/16 07:00 RBC 4.74 M/mm3 (4.00-5.60) 12/31/16 07:00 Hgb 15.1 GM/dL (11.7-16.9) 12/31/16 07:00 Hct 45.0 % (35.4-49) 12/31/16 07:00 MCV 95.0 fl (80-96) 12/31/16 07:00 MCH 31.9 pg (25.7-33.7) 12/31/16 07:00 MCHC 33.6 g/dl (32.0-35.9) 12/31/16 07:00 RDW 13.6 % (11.9-15.9) 12/31/16 07:00 Plt Count 201 K/MM3 (134-434) 12/31/16 07:00 MPV 8.1 fl (7.5-11.1) 12/31/16 07:00 Sodium 141 mmol/L (136-145) 12/31/16 07:00 Potassium 3.8 mmol/L (3.5-5.1) 12/31/16 07:00 Chloride 101 mmol/L (98-107) 12/31/16 07:00 Carbon Dioxide 33 mmol/L (21-32) H 12/31/16 07:00 Anion Gap 7 (8-16) L 12/31/16 07:00 BUN 10 mg/dL (7-18) D 12/31/16 07:00 Creatinine 1.1 mg/dL (0.7-1.3) 12/31/16 07:00 Creat Clearance w eGFR > 60 (>60) 12/31/16 07:00 Random Glucose 61 mg/dL (74-106) L D 12/31/16 07:00 Calcium 9.8 mg/dL (8.5-10.1) 12/31/16 07:00 Total Bilirubin 0.3 mg/dL (0.2-1.0) D 12/31/16 07:00 AST 23 U/L (15-37) D 12/31/16 07:00 ALT 21 U/L (12-78) D 12/31/16 07:00 Alkaline Phosphatase 100 U/L (45-117) 12/31/16 07:00 Total Protein 7.1 g/dl (6.4-8.2) 12/31/16 07:00 Albumin 4.1 g/dl (3.4-5.0) 12/31/16 07:00 RPR Titer Nonreactive (NONREACTIVE) 12/31/16 07:00 Assessment: 01/01/17 10:20 WITHDRAWAL SX Plan: CONTINUE DETOX
[2017-01-01] MEDS: HYDROCORTISONE 1% TOPICAL CREAM 30 GM TUBE TP SCH ×4 (10:55→22:09)
[2017-01-01] MEDS: diazePAM 5 MG TABLET PO PRN ×3 (10:56→21:01)
[2017-01-01] MEDS: PRENATAL VITAMINS W/ FOLIC ACID TABLET (FP) PO SCH (10:56)
[2017-01-01] MEDS: THIAMINE HCL 100 MG TABLET (FP) PO SCH (22:08)
[2017-01-01] MEDS: diphenhydrAMINE HCL 50 MG CAPSULE PO PRN (22:09)
[2017-01-02] MEDS: diazePAM 5 MG TABLET PO PRN (05:40)
[2017-01-02] MEDS: NICOTINE POLACRILEX 4 MG GUM BUC PRN ×2 (05:41→13:14)
[2017-01-02] MEDS ORDERED: METHADONE HCL 10 MG TABLET (FOR DETOX USE ONLY) PO ONE (10:00)
[2017-01-02] MEDS ORDERED: METHADONE HCL 5 MG TABLET (FOR DETOX USE ONLY) PO ONE (10:00)
[2017-01-02] MEDS: PRENATAL VITAMINS W/ FOLIC ACID TABLET (FP) PO SCH (10:07)
[2017-01-02] MEDS: HYDROCORTISONE 1% TOPICAL CREAM 30 GM TUBE TP SCH ×3 (10:08→18:35)
[2017-01-02 17:46] VITALS: BP 114/64; PULSE 70; TEMP 97.5
--- NOTE | 2017-01-02 18:40 | PN ---
[facility] Progress Note (SOAP) Subjective: no complaints, wants to leave today Objective: 01/02/17 18:38 Vital Signs - 8 hr 01/02/17 01/02/17 01/02/17 10:40 14:22 17:45 Temperature 98.2 F 97.6 F 97.5 F L Pulse Rate 58 L 78 70 Respiratory 20 18 18 Rate Blood Pressure 106/71 131/81 114/64 Laboratory Tests 12/31/16 12/31/16 12/31/16 07:00 07:00 07:00 WBC 7.0 RBC 4.74 Hgb 15.1 Hct 45.0 MCV 95.0 MCH 31.9 MCHC 33.6 RDW 13.6 Plt Count 201 MPV 8.1 Sodium 141 Potassium 3.8 Chloride 101 Carbon Dioxide 33 H Anion Gap 7 L BUN 10 D Creatinine 1.1 Creat Clearance w eGFR > 60 Random Glucose 61 L D Calcium 9.8 Total Bilirubin 0.3 D AST 23 D ALT 21 D Alkaline Phosphatase 100 Total Protein 7.1 Albumin 4.1 RPR Titer Nonreactive Assessment: 01/02/17 18:38 medically stable, has not completed detox Plan: d/c today as patient wants to leave and is medically stable, risks and benefits of not completing detoxification as ordered discussed with patient, discussed casewith nurse, regular discharge given
--- NOTE | 2017-01-02 18:42 | DS ---
[facility] Detox Discharge Summary Admission Date: 12/30/16 Discharge Date: 01/02/17 - History Present History: Cannabis Dependence, Cocaine Dependence, Opioid Dependence, Sedative Dependence Pertinent Past History: rash, anxiety, insomnia, depression - Physical Exam Results Vital Signs: Vital Signs Temperature 97.5 F L 01/02/17 17:45 Pulse Rate 70 01/02/17 17:45 Respiratory Rate 18 01/02/17 17:45 Blood Pressure 114/64 01/02/17 17:45 O2 Sat by Pulse Oximetry (%) Pertinent Admission Physical Exam Findings: withdrawal sx - Treatment Hospital Course: Detox Protocol Followed, Responded well, Discharged Condition Good, Rehab Referral Accepted Patient has Accepted a Rehab Referral to: Yes - Medication Discharge Medications: Ambulatory Orders NK [No Known Home Medication] 10/18/16 - Diagnosis (1) Nicotine dependence Current Visit: Yes Status: Chronic Qualifiers: Nicotine product type: cigarettes Substance use status: in withdrawal Qualified Code(s): F17.213 - Nicotine dependence, cigarettes, with withdrawal (2) Opioid dependence with withdrawal Current Visit: Yes Status: Chronic (3) Atypical rash Current Visit: Yes Status: Chronic (4) Sedative, hypnotic or anxiolytic dependence with withdrawal, uncomplicated Current Visit: Yes Status: Chronic (5) Cannabis dependence, uncomplicated Current Visit: Yes Status: Chronic (6) Cocaine dependence, uncomplicated Current Visit: Yes Status: Chronic (7) Drug-induced mood disorder Current Visit: No Status: Suspected
[2017-01-03] MEDS ORDERED: METHADONE HCL 5 MG TABLET (FOR DETOX USE ONLY) PO ONE (06:00)
[2017-01-03] MEDS ORDERED: METHADONE HCL 10 MG TABLET (FOR DETOX USE ONLY) PO ONE (10:00)
[2017-01-04] MEDS ORDERED: METHADONE HCL 5 MG TABLET (FOR DETOX USE ONLY) PO ONE (06:00)
== END 2017-01-02 19:00 | disposition home or self-care (01) | DRG 773 ==
LOC: YASAS 20:43 → Y3N 22:26
PROVIDERS: ADMIT Internal Medicine Addiction Medicine; ATTEND Internal Medicine Addiction Medicine
PROC: HZ2ZZZZ Detoxification Services for Substance Abuse Treatment (ICD-10-PCS; principal; 2016-12-30)
DX: F11.23 Opioid dependence with withdrawal (principal); F13.230 Sedative, hypnotic or anxiolytic dependence with withdrawal, uncomplicated; F14.20 Cocaine dependence, uncomplicated; F12.20 Cannabis dependence, uncomplicated; F17.213 Nicotine dependence, cigarettes, with withdrawal; F19.24 Other psychoactive substance dependence with psychoactive substance-induced mood disorder; R21 Rash and other nonspecific skin eruption; Z87.09 Personal history of other diseases of the respiratory system
CPT/HCPCS: 36415; 80053; 85027; 86593; 93005; 93010

== ENCOUNTER 2018-02-21 16:26 | Inpatient (IN) | payer OTHER ==
[2018-02-21 18:45] VITALS: BMI 25.3
--- NOTE | 2018-02-22 00:54 | HP ---
COWS - Scale Resting Pulse: 0= [place] 80 or Below Sweatin=Flushed/Facial Moisture Restless Observation: 1= Difficult to Sit Still Pupil Size: 1= Pupils >than Normal Bone or Joint Aches: 4=Acute Joint/Muscle Pain Runny Nose/ Eye Tearin= Runny Nose/Eyes GI Upset > 30mins: 3= Vomiting/Diarrhea (vomiting x 2, diarrhea x 2) Tremor Observation: 2= Slight Tremor Visible Yawning Observation: 0= None Anxiety or Irritability: 2=Irritable/Anxious Goose Flesh Skin: 0=Smooth Skin COWS Score: 17 CIWA Score - CIWA Score Nausea/Vomitin (vomiting x 2) Muscle Tremors: 4-Moderate,w/Arms Extend Anxiety: 3 Agitation: 3 Paroxysmal Sweats: 1-Minimal Palms Moist Orientation: 0-Oriented Tacttile Disturbances: 0-None Auditory Disturbances: 0-None Visual Disturbances: 0-None Headache: 3-Moderate CIWA-Ar Total Score: 17 Admission ROS BHS - HPI Chief Complaint: Alcohol and benzodiazepine withdrawal symptoms Allergies/Adverse Reactions: Allergies Allergy/AdvReac Type Severity Reaction Status Date / Time No Known Allergies Allergy Verified 02/21/18 21:56 History of Present Illness: 27 years old male with 2 years of heroin and benzodiazepine dependence is seeking admission to detox. Patient was in detox at [place], [place] in October 2017. He reports 4 months of sobriety. Patient has medical history of depression and anxiety.He denies suicidal ideation at this time. Exam Limitations: No Limitations - Ebola screening Have you traveled outside of the country in the last 21 days: No (N) Have you had contact with anyone from an Ebola affected area: No Have you been sick,other than usual withdrawal symptoms: No Do you have a fever: No - Review of Systems Constitutional: Chills, Loss of Appetite, Malaise, Changes in sleep EENT: reports: No Symptoms Reported Respiratory: reports: No Symptoms reported Cardiac: reports: No Symptoms Reported GI: reports: Diarrhea (x 2), Poor Appetite, Poor Fluid Intake, Vomiting (x 2), Abdominal cramping : reports: No Symptoms Reported Musculoskeletal: reports: Back Pain, Joint Pain, Muscle Pain Integumentary: reports: No Symptoms Reported, Dryness Neuro: reports: Headache, Tremors Endocrine: reports: No Symptoms Reported Hematology: reports: No Symptoms Reported Psychiatric: reports: Orientated x3, Anxious, Depressed Other Systems: Reviewed and Negative Patient History - Patient Medical History Hx Anemia: No Hx Asthma: Yes ( - Not on medication) Hx Chronic Obstructive Pulmonary Disease (COPD): No Hx Cancer: No Hx Cardiac Disorders: No Hx Congestive Heart Failure: No Hx Hypertension: No Hx Hypercholesterolemia: No Hx Pacemaker: No HX Cerebrovascular Accident: No Hx Seizures: No Hx Dementia: No Hx Diabetes: No Hx Gastrointestinal Disorders: No Hx Liver Disease: No Hx Genitourinary Disorders: No Hx Sexually Transmitted Disorders: No Hx Renal Disease (ESRD): No Hx Thyroid Disease: No Hx Human Immunodeficiency Virus (HIV): No Hx Hepatitis C: No Hx Depression: Yes (Not on medication) Hx Suicide Attempt: No Hx Bipolar Disorder: No Hx Schizophrenia: No Other Medical History: Anxiety - Not on medication - Patient Surgical History Past Surgical History: No Hx Neurologic Surgery: No Hx Cataract Extraction: No Hx Cardiac Surgery: No Hx Lung Surgery: No Hx Breast Surgery: No Hx Abdominal Surgery: No Hx Appendectomy: No Hx Cholecystectomy: No Hx Genitourinary Surgery: No Hx Section: No Hx Orthopedic Surgery: No Anesthesia Reaction: No - PPD History Previous Implant?: Yes Documented Results: Negative w/proof Date: 10/20/16 PPD to be Administered?: Yes - Reproductive History Patient is a Female of Child Bearing Age (11 -55 yrs old): No (Male) - Smoking Cessation Smoking history: Current every day smoker Have you smoked in the past 12 months: Yes Aproximately how many cigarettes per day: 25 Hx Chewing Tobacco Use: No Initiated information on smoking cessation: Yes 'Breaking Loose' booklet given: 02/22/18 - Substance & Tx. History Hx Alcohol Use: No Hx Substance Use: Yes Substance Use Type: Heroin, Tranquilizers Hx Substance Use Treatment: Yes ([facility]) - Substances Abused Alprazolam (Xanax) Route: Oral Frequency: Daily Amount used: 4mg Age of first use: 19 Date of Last Use: 02/21/18 Heroin Route: Inhalation Frequency: Daily Amount used: 2gm Age of first use: 25 Date of Last Use: 02/21/18 Cocaine Route: Inhalation Frequency: 1-2 times per week Amount used: 15 Age of first use: 13 Date of Last Use: 02/21/18 Family Disease History - Family Disease History Family Disease History: Diabetes: Grandparent, Other: Father (Heroin,Bipolar disorder ) Admission Physical Exam [facility] - Vital Signs Vital Signs: Vital Signs - 24 hr 02/21/18 18:36 Temperature 98.1 F Pulse Rate 71 Respiratory 18 Rate Blood Pressure 119/69 - Physical General Appearance: Yes: Moderate Distress HEENTM: Yes: EOMI, Normal ENT Inspection, Normal Voice Respiratory: Yes: Lungs Clear, Normal Breath Sounds, No Respiratory Distress Neck: Yes: Supple Breast: Yes: Breast Exam Deferred Cardiology: Yes: Regular Rhythm, Regular Rate Abdominal: Yes: Normal Bowel Sounds Genitourinary: Yes: Within Normal Limits Back: Yes: Normal Inspection Musculoskeletal: Yes: Back pain, Muscle Pain, Muscle weakness Extremities: Yes: Tremors 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, Alert, Normal Mood/Affect Integumentary: Yes: Warm Lymphatic: Yes: Within Normal Limits - Diagnostic (1) Anxiety Current Visit: Yes Status: Chronic (2) Depression (emotion) Current Visit: Yes Status: Chronic Qualifiers: Depression Type: unspecified Qualified Code(s): F32.9 - Major depressive disorder, single episode, unspecified (3) Asthma Current Visit: Yes Status: Chronic Qualifiers: Asthma severity: mild Asthma complication type: uncomplicated (4) Cannabis dependence, uncomplicated Current Visit: Yes Status: Chronic (5) Cocaine dependence, uncomplicated Current Visit: Yes Status: Chronic (6) Nicotine dependence Current Visit: Yes Status: Chronic Qualifiers: Nicotine product type: cigarettes Substance use status: in withdrawal Qualified Code(s): F17.213 - Nicotine dependence, cigarettes, with withdrawal (7) Opioid dependence with withdrawal Current Visit: Yes Status: Chronic (8) Sedative, hypnotic or anxiolytic dependence with withdrawal, uncomplicated Current Visit: Yes Status: Chronic Cleared for Admission [facility] - Detox or Rehab [facility] Level of Care: Medically Managed Detox Regimen/Protocol: Methadone/Valium [facility] Breath Alcohol Content Breath Alcohol Content: 0 Urine Drug Screen - Results Drug Screen Negative: No Urine Drug Screen Results: THC-Marijuana, OPI-Opiates, BZO-Benzodiazepines, FEN- Fentanyl, BUP-Suboxone
[2018-02-22] MEDS ORDERED: LOPERAMIDE HCL 2 MG CAPSULE PO PRN (01:03)
[2018-02-22] MEDS ORDERED: MAGNESIUM CITRATE 300 ML BOTTLE PO PRN (01:03)
[2018-02-22] MEDS ORDERED: diazePAM 5 MG TABLET PO ONE (01:03)
[2018-02-22] MEDS ORDERED: ACETAMINOPHEN 325 MG TABLET (FP) PO PRN (01:03)
[2018-02-22] MEDS ORDERED: METHADONE HCL 10 MG TABLET (FOR DETOX USE ONLY) PO ONE ×3 (01:03→23:00)
[2018-02-22] MEDS ORDERED: P-EPHED 60MG/TRIPROLIDI 2.5MG TABLET PO PRN (01:03)
[2018-02-22] MEDS ORDERED: IBUPROFEN 400 MG TABLET (FP) PO PRN (01:03)
[2018-02-22] MEDS ORDERED: MENTHOL/PHENOL 1 EACH UD MM PRN (01:03)
[2018-02-22] MEDS ORDERED: MAGNESIUM HYDROX 2400MG/30ML ORAL SUSPENSION 30 ML CUP PO PRN (01:03)
[2018-02-22] MEDS ORDERED: guaiFENesin/D-METHORPHAN HB 10 ML UNIT-DOSE CUPS PO PRN (01:03)
[2018-02-22] MEDS: diazePAM 5 MG TABLET PO SCH ×3 (06:43→22:52)
[2018-02-22] MEDS: diazePAM 5 MG TABLET PO PRN (10:18)
[2018-02-22] MEDS: PRENATAL VITAMINS W/ FOLIC ACID TABLET (FP) PO SCH (10:18)
--- NOTE | 2018-02-22 11:54 | PN ---
[facility] CIWA - CIWA Score Nausea/Vomitin-Mild Nausea/No Vomiting Muscle Tremors: 4-Moderate,w/Arms Extend Anxiety: 4-Mod. Anxious/Guarded Agitation: 4-Moderately Restless Paroxysmal Sweats: 3 Orientation: 0-Oriented Tacttile Disturbances: 0-None Auditory Disturbances: 0-None Visual Disturbances: 0-None Headache: 1-Very Mild CIWA-Ar Total Score: 17 [facility] COWS - Scale Resting Pulse: 0= [place] 80 or Below Sweatin=Flushed/Facial Moisture Restless Observation: 1= Difficult to Sit Still Pupil Size: 0= Normal to Room Light Bone or Joint Aches: 2= Severe Diffuse Aches Runny Nose/ Eye Tearin= Runny Nose/Eyes GI Upset > 30mins: 2= Nausea/Diarrhea Tremor Observation of Outstretched Hands: 2= Slight Tremor Visible Yawning Observation: 2= >3x During Session Anxiety or Irritability: 2=Irritable/Anxious Goose Flesh Skin: 0=Smooth Skin COWS Score: 15 [facility] Progress Note (SOAP) Subjective: sweats shakes restless irritable agitation body aches nausea headache Objective: 02/22/18 11:54 Vital Signs Temperature 98.1 F 02/22/18 09:33 Pulse Rate 71 02/22/18 09:33 Respiratory Rate 18 02/22/18 09:33 Blood Pressure 130/70 02/22/18 09:33 O2 Sat by Pulse Oximetry (%) labs pending aaox3 lying in bed no acute distress Assessment: 02/22/18 11:56 withdrawal sx Plan: pt came in after midnight added an extra dose of methadone 10mg to regimen. Pt was due to received it was never ordered until now. continue detox increase fluids pending labs
--- NOTE | 2018-02-22 11:54 | CONSULT ---
[facility] Psychiatric Consult - Data Date of interview: 02/22/18 Admission source: [facility] Identifying data: Patient is a 27 year old single male, without children, unemployed, and currently homeless. This is one of multiple admissions for patient. Patient admitted to for opioid and benzodiazepine dependence. Substance Abuse History: - Smoking Cessation. Smoking history: Current every day smoker. Have you smoked in the past 12 months: Yes. Aproximately how many cigarettes per day: 25. Hx Chewing Tobacco Use: No. Initiated information on smoking cessation: Yes. 'Breaking Loose' booklet given: 02/22/18. - Substance & Tx. History. Hx Alcohol Use: No. Hx Substance Use: Yes. Substance Use Type : Heroin, Tranquilizers. Hx Substance Use Treatment: Yes ([facility]). - Substances Abused. Alprazolam (Xanax). Route: Oral. Frequency: Daily. Amount used: 4mg. Age of first use: 19. Date of Last Use: 02/21/18. Heroin. Route: Inhalation. Frequency: Daily. Amount used: 2gm. Age of first use: 25. Date of Last Use: 02/21/18. Cocaine. Route: Inhalation. Frequency: 1-2 times per week. Amount used: 15. Age of first use: 13. Date of Last Use: 02/21/18 Medical History: Asthma Psychiatric History: Patient denies h/o psychiatric hospitalization, outpatient care, and suicide attempt. Physical/Sexual Abuse/Trauma History: denies. Mental Status Exam - Mental Status Exam Alert and Oriented to: Time, Place, Person Cognitive Function: Good Patient Appearance: Well Groomed Mood: Withdrawn Affect: Mood Congruent Patient Behavior: Fatigued, Guarded Speech Pattern: Delayed Voice Loudness: Moderately Soft/Quiet Thought Process: Intact, Goal Oriented Hallucinations: Denies Suicidal Ideation: Denies Homicidal Ideation: Denies Insight/Judgement: Poor Sleep: Poorly Appetite: Poor Muscle strength/Tone: Normal Gait/Station: Normal Psychiatric Findings - Problem List ([place] 1, 2,3) (1) Substance induced mood disorder Current Visit: Yes Status: Acute (2) Cannabis dependence, uncomplicated Current Visit: Yes Status: Chronic (3) Opioid dependence with withdrawal Current Visit: Yes Status: Acute (4) Sedative, hypnotic or anxiolytic dependence with withdrawal, uncomplicated Current Visit: Yes Status: Acute (5) Nicotine dependence Current Visit: Yes Status: Chronic Qualifiers: Nicotine product type: cigarettes Substance use status: in withdrawal Qualified Code(s): F17.213 - Nicotine dependence, cigarettes, with withdrawal - Initial Treatment Plan Initial Treatment Plan: Psychoeducation provided. Detoxification in progress. Observation.
--- NOTE | 2018-02-22 12:58 | EKG ---
Test Reason : Blood Pressure : / mmHG Vent. Rate : 076 BPM Atrial Rate : 076 BPM P-R Int : 158 ms QRS Dur : 086 ms QT Int : 370 ms P-R-T Axes : 064 058 037 degrees QTc Int : 416 ms NORMAL SINUS RHYTHM WITH SINUS ARRHYTHMIA NORMAL ECG Confirmed by MD NEVILLE, JOANNE ([id number]) on 02/22/2018 12:58:38 PM Referred By: Confirmed By:JOANNE LOZADA MD
[2018-02-22 16:41] LABS: URINE APPEARANCE CLEAR; URINE BILIRUBIN NEGATIVE (<2.0 mg/dL); URINE COLOR LTYELLOW; URINE GLUCOSE (UA) NEGATIVE (NEGATIVE); URINE KETONE NEGATIVE (NEGATIVE); URINE LEUK ESTERASE NEGATIVE (NEGATIVE); URINE NITRITE NEGATIVE (NEGATIVE); URINE PROTEIN NEGATIVE (NEGATIVE); URINE UROBILINOGEN NEGATIVE mg/dL (0.2-1.0)
[2018-02-22] MEDS ORDERED: MELATONIN 5 MG TABLETS PO PRN (22:00)
[2018-02-22] MEDS: THIAMINE HCL 100 MG TABLET (FP) PO SCH (22:52)
[2018-02-23] MEDS: diazePAM 5 MG TABLET PO SCH ×3 (07:57→22:31)
[2018-02-23] MEDS ORDERED: METHADONE HCL 10 MG TABLET (FOR DETOX USE ONLY) PO SCH (10:00)
--- NOTE | 2018-02-23 10:19 | PN ---
[facility] CIWA - CIWA Score Nausea/Vomitin-No Nausea/No Vomiting Muscle Tremors: 4-Moderate,w/Arms Extend Anxiety: 3 Agitation: 3 Paroxysmal Sweats: 3 Orientation: 0-Oriented Tacttile Disturbances: 0-None Auditory Disturbances: 0-None Visual Disturbances: 0-None Headache: 1-Very Mild CIWA-Ar Total Score: 14 [facility] COWS - Scale Resting Pulse: 0= [place] 80 or Below Sweatin=Flushed/Facial Moisture Restless Observation: 1= Difficult to Sit Still Pupil Size: 0= Normal to Room Light Bone or Joint Aches: 2= Severe Diffuse Aches Runny Nose/ Eye Tearin= Nasal Congestion GI Upset > 30mins: 1= Stomach Cramp Tremor Observation of Outstretched Hands: 2= Slight Tremor Visible Yawning Observation: 2= >3x During Session Anxiety or Irritability: 2=Irritable/Anxious Goose Flesh Skin: 0=Smooth Skin COWS Score: 13 S Progress Note (SOAP) Subjective: irritable agitation anxiety sweats body aches Objective: 02/23/18 10:19 Vital Signs Temperature 98.6 F 02/23/18 09:32 Pulse Rate 75 02/23/18 09:32 Respiratory Rate 18 02/23/18 09:32 Blood Pressure 123/73 02/23/18 09:32 O2 Sat by Pulse Oximetry (%) Laboratory Tests 02/22/18 13:30 Urine Color Ltyellow Urine Appearance Clear Urine pH 9.0 H D Ur Specific [place] 1.010 Urine Protein Negative Urine Glucose (UA) Negative Urine Ketones Negative Urine Blood Negative Urine Nitrite Negative Urine Bilirubin Negative Urine Urobilinogen Negative Ur Leukocyte Esterase Negative rest of labs pending aaox3 ambulating no acute distress Assessment: 02/23/18 10:20 withdrawal sx Plan: continue detox increase fluids f/u pending labs
[2018-02-23] MEDS: PRENATAL VITAMINS W/ FOLIC ACID TABLET (FP) PO SCH (10:48)
[2018-02-23 14:20] LABS: HEMATOCRIT 46.1 % (35.4-49); HEMOGLOBIN 15.5 GM/dL (11.7-16.9); MCH 31.6 pg (25.7-33.7); MCHC 33.7 g/dl (32.0-35.9); MEAN CELL VOLUME 93.8 fl (80-96); MEAN PLT VOLUME 8.6 fl (7.5-11.1); PLATELET COUNT 171 K/MM3 (134-434); RBC 4.91 M/mm3 (4.00-5.60); RDW 13.1 % (11.9-15.9); WHITE BLOOD COUNT 6.8 K/mm3 (4.0-10.0)
[2018-02-23 15:17] LABS: ALBUMIN 3.9 g/dl (3.4-5.0); ALK PHOS 88 U/L (45-117); ANION GAP 9 MMOL/L (8-16); BILIRUBIN,TOTAL 0.8 mg/dL (0.2-1); BLOOD UREA NITROGEN 12 mg/dL (7-18); CALCIUM 9.7 mg/dL (8.5-10.1); CHLORIDE 102 mmol/L (98-107); CO2 29 mmol/L (21-32); GLUCOSE,RANDOM 80 mg/dL (74-106); POTASSIUM 4.2 mmol/L (3.5-5.1); SGOT/AST 24 U/L (15-37); SGPT/ALT 16 U/L (13-61); SODIUM 140 mmol/L (136-145); TOT PROT 7.3 g/dl (6.4-8.2)
[2018-02-23] MEDS: THIAMINE HCL 100 MG TABLET (FP) PO SCH (22:31)
[2018-02-24] MEDS: PRENATAL VITAMINS W/ FOLIC ACID TABLET (FP) PO SCH (10:01)
[2018-02-24] MEDS: diazePAM 5 MG TABLET PO SCH ×2 (10:02→22:11)
[2018-02-24] MEDS: METHADONE HCL 5 MG TABLET (FOR DETOX USE ONLY) PO SCH (10:02)
--- NOTE | 2018-02-24 10:28 | PN ---
[facility] Progress Note (SOAP) Subjective: irritable anxiety sweats interrupted sleep Objective: 02/24/18 10:27 Vital Signs Temperature 97.0 F L 02/24/18 09:51 Pulse Rate 88 02/24/18 09:51 Respiratory Rate 17 02/24/18 09:51 Blood Pressure 129/72 02/24/18 09:51 O2 Sat by Pulse Oximetry (%) aaox3 ambulating no acute distress Assessment: 02/24/18 10:28 withdrawal sx Plan: continue detox increase fluids
[2018-02-24] MEDS: MAG HYDROX/AL HYDROX/SIMETH 30 ML UNIT-DOSE CUP PO PRN (12:39)
[2018-02-24] MEDS: diazePAM 5 MG TABLET PO PRN (15:41)
[2018-02-24] MEDS: THIAMINE HCL 100 MG TABLET (FP) PO SCH (22:11)
[2018-02-25] MEDS: MAG HYDROX/AL HYDROX/SIMETH 30 ML UNIT-DOSE CUP PO PRN (09:28)
[2018-02-25] MEDS: PRENATAL VITAMINS W/ FOLIC ACID TABLET (FP) PO SCH (10:14)
[2018-02-25] MEDS: diazePAM 5 MG TABLET PO SCH ×2 (10:14→22:25)
[2018-02-25] MEDS: METHADONE HCL 5 MG TABLET (FOR DETOX USE ONLY) PO SCH (10:14)
--- NOTE | 2018-02-25 10:23 | PN ---
[facility] Progress Note (SOAP) Subjective: heartburn anxiety Objective: 02/25/18 10:22 Vital Signs Temperature 97.7 F 02/25/18 09:23 Pulse Rate 70 02/25/18 09:23 Respiratory Rate 18 02/25/18 09:23 Blood Pressure 110/60 02/25/18 09:23 O2 Sat by Pulse Oximetry (%) aaox3 ambulating no acute distress Assessment: 02/25/18 10:22 mild withdrawal sx Plan: continue detox zantac 150mg bid
[2018-02-25] MEDS: RANITIDINE HCL 150 MG TABLET (FP) PO SCH ×2 (10:30→22:25)
--- NOTE | 2018-02-25 14:11 | PN ---
[facility] Progress Note Note: pt c/o of foul odor smell with secretion via anal with and itchy. ABX and cream ordered. pt in agreement.
[2018-02-25] MEDS: DOXYCYCLINE HYCLATE 100 MG TABLET PO SCH (15:10)
[2018-02-25] MEDS: hydrOXYzine PAMOATE 50 MG CAPSULE (FP) PO PRN (17:29)
[2018-02-25] MEDS: THIAMINE HCL 100 MG TABLET (FP) PO SCH (22:25)
[2018-02-25] MEDS: HYDROCORTISONE 2.5% TOPICAL CREAM 30 GM TUBE PR SCH (22:25)
[2018-02-26] MEDS ORDERED: METHADONE HCL 10 MG TABLET (FOR DETOX USE ONLY) PO SCH (10:00)
[2018-02-26] MEDS ORDERED: diazePAM 5 MG TABLET PO SCH (10:00)
[2018-02-26] MEDS: DOXYCYCLINE HYCLATE 100 MG TABLET PO SCH (10:14)
[2018-02-26] MEDS: RANITIDINE HCL 150 MG TABLET (FP) PO SCH ×2 (10:14→22:28)
[2018-02-26] MEDS: PRENATAL VITAMINS W/ FOLIC ACID TABLET (FP) PO SCH (10:14)
--- NOTE | 2018-02-26 15:02 | PN ---
S Progress Note (SOAP) Subjective: States feeling much better today. Continue w/ some mild anxiety. Tolerating diet. Objective: A&O x 3. Mild tremors of hands noted. Vital Signs 02/26/18 02/26/18 09:29 14:04 Temperature 97.7 F 97.5 F L Pulse Rate 79 76 Respiratory 16 18 Rate Blood Pressure 121/68 122/63 Laboratory Last Values WBC 6.8 K/mm3 (4.0-10.0) 02/23/18 07:00 RBC 4.91 M/mm3 (4.00-5.60) 02/23/18 07:00 Hgb 15.5 GM/dL (11.7-16.9) 02/23/18 07:00 Hct 46.1 % (35.4-49) 02/23/18 07:00 MCV 93.8 fl (80-96) 02/23/18 07:00 MCH 31.6 pg (25.7-33.7) 02/23/18 07:00 MCHC 33.7 g/dl (32.0-35.9) 02/23/18 07:00 RDW 13.1 % (11.9-15.9) 02/23/18 07:00 Plt Count 171 K/MM3 (134-434) 02/23/18 07:00 MPV 8.6 fl (7.5-11.1) 02/23/18 07:00 Sodium 140 mmol/L (136-145) 02/23/18 07:00 Potassium 4.2 mmol/L (3.5-5.1) 02/23/18 07:00 Chloride 102 mmol/L (98-107) 02/23/18 07:00 Carbon Dioxide 29 mmol/L (21-32) 02/23/18 07:00 Anion Gap 9 MMOL/L (8-16) 02/23/18 07:00 BUN 12 mg/dL (7-18) 02/23/18 07:00 Creatinine 1.0 mg/dL (0.55-1.3) 02/23/18 07:00 Creat Clearance w eGFR > 60 (>60) 02/23/18 07:00 Random Glucose 80 mg/dL (74-106) 02/23/18 07:00 Calcium 9.7 mg/dL (8.5-10.1) 02/23/18 07:00 Total Bilirubin 0.8 mg/dL (0.2-1) 02/23/18 07:00 AST 24 U/L (15-37) 02/23/18 07:00 ALT 16 U/L (13-61) 02/23/18 07:00 Alkaline Phosphatase 88 U/L (45-117) 02/23/18 07:00 Total Protein 7.3 g/dl (6.4-8.2) 02/23/18 07:00 Albumin 3.9 g/dl (3.4-5.0) 02/23/18 07:00 Urine Color Ltyellow 02/22/18 13:30 Urine Appearance Clear 02/22/18 13:30 Urine pH 9.0 (5.0-8.0) H D 02/22/18 13:30 Ur Specific [place] 1.010 (1.010-1.035) 02/22/18 13:30 Urine Protein Negative (NEGATIVE) 02/22/18 13:30 Urine Glucose (UA) Negative (NEGATIVE) 02/22/18 13:30 Urine Ketones Negative (NEGATIVE) 02/22/18 13:30 Urine Blood Negative (NEGATIVE) 02/22/18 13:30 Urine Nitrite Negative (NEGATIVE) 02/22/18 13:30 Urine Bilirubin Negative (<2.0 mg/dL) 02/22/18 13:30 Urine Urobilinogen Negative mg/dL (0.2-1.0) 02/22/18 13:30 Ur Leukocyte Esterase Negative (NEGATIVE) 02/22/18 13:30 RPR Titer Nonreactive (NONREACTIVE) 02/23/18 07:00 Labs reviewed. Assessment: Withdrawal symptoms. Plan: Continue detox.
[2018-02-26] MEDS: hydrOXYzine PAMOATE 50 MG CAPSULE (FP) PO PRN ×2 (17:08→22:28)
[2018-02-26] MEDS: HYDROCORTISONE 2.5% TOPICAL CREAM 30 GM TUBE PR SCH (22:28)
[2018-02-26] MEDS: THIAMINE HCL 100 MG TABLET (FP) PO SCH (22:28)
[2018-02-27] MEDS ORDERED: METHADONE HCL 5 MG TABLET (FOR DETOX USE ONLY) PO SCH (06:00)
[2018-02-27] MEDS: DOXYCYCLINE HYCLATE 100 MG TABLET PO SCH (09:34)
[2018-02-27] MEDS: RANITIDINE HCL 150 MG TABLET (FP) PO SCH (09:34)
[2018-02-27] MEDS: PRENATAL VITAMINS W/ FOLIC ACID TABLET (FP) PO SCH (09:34)
--- NOTE | 2018-02-27 09:44 | DS ---
[facility] Detox Discharge Summary Admission Date: 02/21/18 Discharge Date: 02/27/18 - History Present History: Opioid Dependence, Sedative Dependence Additional Comments: 27 years old male admitted on 02/22/18 for benzo and opiate withdrwal sx completed detox regimen tolerated well denies withdrawal sx alert oriented x 3 no acute distress [facility] - Physical Exam Results Vital Signs: Vital Signs Temperature 97.5 F L 02/27/18 07:00 Pulse Rate 60 02/27/18 07:00 Respiratory Rate 18 02/27/18 07:00 Blood Pressure 111/63 02/27/18 07:00 O2 Sat by Pulse Oximetry (%) Pertinent Admission Physical Exam Findings: benzo and opiate withdrwal sx Vital Signs Temperature 98.1 F 02/27/18 09:51 Pulse Rate 65 02/27/18 09:51 Respiratory Rate 16 02/27/18 09:51 Blood Pressure 107/61 02/27/18 09:51 O2 Sat by Pulse Oximetry (%) Laboratory Last Values WBC 6.8 K/mm3 (4.0-10.0) 02/23/18 07:00 RBC 4.91 M/mm3 (4.00-5.60) 02/23/18 07:00 Hgb 15.5 GM/dL (11.7-16.9) 02/23/18 07:00 Hct 46.1 % (35.4-49) 02/23/18 07:00 MCV 93.8 fl (80-96) 02/23/18 07:00 MCH 31.6 pg (25.7-33.7) 02/23/18 07:00 MCHC 33.7 g/dl (32.0-35.9) 02/23/18 07:00 RDW 13.1 % (11.9-15.9) 02/23/18 07:00 Plt Count 171 K/MM3 (134-434) 02/23/18 07:00 MPV 8.6 fl (7.5-11.1) 02/23/18 07:00 Sodium 140 mmol/L (136-145) 02/23/18 07:00 Potassium 4.2 mmol/L (3.5-5.1) 02/23/18 07:00 Chloride 102 mmol/L (98-107) 02/23/18 07:00 Carbon Dioxide 29 mmol/L (21-32) 02/23/18 07:00 Anion Gap 9 MMOL/L (8-16) 02/23/18 07:00 BUN 12 mg/dL (7-18) 02/23/18 07:00 Creatinine 1.0 mg/dL (0.55-1.3) 02/23/18 07:00 Creat Clearance w eGFR > 60 (>60) 02/23/18 07:00 Random Glucose 80 mg/dL (74-106) 02/23/18 07:00 Calcium 9.7 mg/dL (8.5-10.1) 02/23/18 07:00 Total Bilirubin 0.8 mg/dL (0.2-1) 02/23/18 07:00 AST 24 U/L (15-37) 02/23/18 07:00 ALT 16 U/L (13-61) 02/23/18 07:00 Alkaline Phosphatase 88 U/L (45-117) 02/23/18 07:00 Total Protein 7.3 g/dl (6.4-8.2) 02/23/18 07:00 Albumin 3.9 g/dl (3.4-5.0) 02/23/18 07:00 Urine Color Ltyellow 02/22/18 13:30 Urine Appearance Clear 02/22/18 13:30 Urine pH 9.0 (5.0-8.0) H D 02/22/18 13:30 Ur Specific [place] 1.010 (1.010-1.035) 02/22/18 13:30 Urine Protein Negative (NEGATIVE) 02/22/18 13:30 Urine Glucose (UA) Negative (NEGATIVE) 02/22/18 13:30 Urine Ketones Negative (NEGATIVE) 02/22/18 13:30 Urine Blood Negative (NEGATIVE) 02/22/18 13:30 Urine Nitrite Negative (NEGATIVE) 02/22/18 13:30 Urine Bilirubin Negative (<2.0 mg/dL) 02/22/18 13:30 Urine Urobilinogen Negative mg/dL (0.2-1.0) 02/22/18 13:30 Ur Leukocyte Esterase Negative (NEGATIVE) 02/22/18 13:30 RPR Titer Nonreactive (NONREACTIVE) 02/23/18 07:00 lab noted - Treatment Hospital Course: Detox Protocol Followed, Responded well Patient has Accepted a Rehab Referral to: [facility] - Medication Discharge Medications: Ambulatory Orders Doxycycline Hyclate [Vibratab -] 100 mg PO DAILY #10 tablet 02/27/18 Ranitidine [Zantac -] 150 mg PO BID #60 tablet 02/27/18 - Diagnosis (1) Opioid dependence with withdrawal Status: Acute (2) Sedative, hypnotic or anxiolytic dependence with withdrawal, uncomplicated Status: Acute (3) Asthma Status: Chronic Qualifiers: Asthma severity: mild Asthma persistence: intermittent Asthma complication type: uncomplicated Qualified Code(s): J45.20 - Mild intermittent asthma, uncomplicated (4) Nicotine dependence Status: Acute Qualifiers: Nicotine product type: cigarettes Substance use status: in withdrawal Qualified Code(s): F17.213 - Nicotine dependence, cigarettes, with withdrawal (5) Drug-induced mood disorder Status: Suspected - AMA Did Patient Leave Against Medical Advice: No
[2018-02-27 09:52] VITALS: BP 107/61; PULSE 65; TEMP 98.1
== END 2018-02-27 10:00 | disposition home or self-care (01) | DRG 773 ==
LOC: YASAS 16:26 → Y6N 22:07
PROC: HZ2ZZZZ Detoxification Services for Substance Abuse Treatment (ICD-10-PCS; principal; 2018-02-21)
DX: F11.23 Opioid dependence with withdrawal (principal); F13.230 Sedative, hypnotic or anxiolytic dependence with withdrawal, uncomplicated; F14.20 Cocaine dependence, uncomplicated; F12.20 Cannabis dependence, uncomplicated; F17.213 Nicotine dependence, cigarettes, with withdrawal; F19.24 Other psychoactive substance dependence with psychoactive substance-induced mood disorder; F41.9 Anxiety disorder, unspecified; F32.9 Major depressive disorder, single episode, unspecified; J45.20 Mild intermittent asthma, uncomplicated; Z59.0 Homelessness
CPT/HCPCS: 36415; 80053; 81003; 85027; 86593; 93005; 93010